=== PATIENT | female | born 1975 | race Caucasian/White ===

== ENCOUNTER → 2018-07-13 | Outpatient (CLI) | payer BC ==
--- NOTE | 2018-07-13 16:23 | US ---
EXAM DESCRIPTION: Soft Tissue,Extremity: ULTRASOUND. CLINICAL HISTORY: 43 years Female PAIN IN RIGHT ARM. Upper lateral and posterior aspect of the right arm. COMPARISON: Comparison ultrasound images of the left arm TECHNIQUE: Transcutaneous scanning: Amaral-scale and Doppler modes. FINDINGS: Scanning of the upper lateral posterior aspect of the right arm were masses palpable. The subcutaneous tissues are homogeneous. There are echogenic fascial planes indicating circumscribed regions of fat which could represent small lipomas. There is also increased echogenicity in the muscle layer posterior to the subcutaneous fascia boundary. No dominant solid mass or distinct cyst. No abnormal calcifications or parenchymal edema. No abnormal vascularity. No overlying skin changes. IMPRESSION: No focally abnormal soft tissue mass in the region of interest. There may be small lipoma or lipomas, which were not not measured. Minimal muscle atrophy indicated by increased fatty content. CRITICAL COMMUNICATION: The critical value was discussed directly by phone by the external grinder tool Ms. Gretta Carrillo RDMS, with Dr. Jerrod Wyatt at approximately 1610 hours, on July 13, 2018. Electronically signed by: Alton Lauren MD 07/13/2018 4:22 PM [facility]
== END ==
LOC: US 15:30
PROVIDERS: ATTEND Family Medicine
DX: M79.601 Pain in right arm (principal)

== ENCOUNTER → 2018-07-20 | Outpatient (CLI) | payer BC ==
--- NOTE | 2018-07-20 09:28 | MRI ---
EXAM DESCRIPTION: MRI right upper arm without and with contrast CLINICAL HISTORY: Pain and swelling upper lateral humerus COMPARISON: None. TECHNIQUE: Multiplanar, multisequence MR images of the right upper arm, pre and post intravenous gadolinium FINDINGS: Not a detailed evaluation of the shoulder joint or the elbow. No advanced glenohumeral arthrosis or focal osteochondral lesion. Rotator cuff tendinosis supraspinatus. Biceps tendon is intact No signal abnormality or mass lesion in the soft tissues of the upper arm. Normal appearance of the muscles Normal marrow signal No abnormality along the neurovascular structures Elbow joint effusion with high-grade chondral thinning diffusely. No focal osteochondral lesion IMPRESSION: No mass lesion or other focal abnormality of the soft tissues of the right upper arm Electronically signed by: Trevor Land MD 07/20/2018 9:27 AM [facility]
== END ==
LOC: MRI 07:45
PROVIDERS: ATTEND Family Medicine
DX: R22.31 Localized swelling, mass and lump, right upper limb (principal)

== ENCOUNTER 2018-11-18 05:21 | Day surgery (SDC) | payer BC ==
[2018-11-18] MEDS ORDERED: PROPOFOL 200 MG/20 ML VIAL IV ONE (07:00)
[2018-11-18] MEDS ORDERED: LIDOCAINE 1% 10 ML VIAL INJ ONE (07:00)
[2018-11-18] MEDS ORDERED: LACTATED RINGERS 1,000 ML ONE (07:05)
[2018-11-18] MEDS ORDERED: LACTATED RINGERS 1,000 ML IVS ONE (08:10)
--- NOTE | 2018-11-18 10:16 | OP ---
DATE OF PROCEDURE: 11/18/18 PREPROCEDURE DIAGNOSIS: 1. Change in bowel pattern. 2. Rectal bleeding. POSTPROCEDURE DIAGNOSIS: 1. Tortuous colon. 2. Internal hemorrhoids. PROCEDURE: 1. Colonoscopy. SURGEON: Clay Rand MD COMPLICATIONS: No immediate complications. SEDATION: Anesthesia was provided by the Anesthesia Department. CONSENT: Prior to the procedure, risks, benefits and alternatives to the therapy were discussed with the patient. The risks included bleeding, infection, perforation and . The patient agreed to the procedure and signed a consent. PREPROCEDURE ANESTHESIA ASSESSMENT: Mallampati class type 2, ASA grade assessment type 2. Throughout the procedure, the patient's vital signs were closely monitored. PROCEDURE: The patient was placed in the left lateral decubitus position and a rectal examination was performed. The rectal examination was within normal limits. The Olympus colonoscope was passed in the anus, rectum, traversing the colon to the level of the cecum as identified by the appendiceal orifice. The scope was retracted and the mucosa was visualized. The entirety of the exam was performed under direct visualization. Retroflexion was performed in the rectum. Preparation quality was good. The withdrawal time was greater than 6 minutes. The patient tolerated the procedure well. FINDINGS: 1. Tortuous colon. 2. Medium to large sized internal hemorrhoids, non-bleeding, were found in retroflexion. 3. Otherwise, the examination of the colon was unremarkable. RECOMMENDATION: 1. Return the patient home. 2. Resume previous diet favoring high-fiber foods. 3. Continue lubiprostone at 8 mcg p.o. b.i.d. 4. May add Citrucel to dietary regimen. 5. If persistent and recurrent bleeding, may consider hemorrhoidal banding p.r.n. 6. Return to referring physicians office as previously scheduled. 7. Return to my office in the next 3 to 4 weeks. #[id number] MTDD
[2018-11-18 10:44] VITALS: BP 102/42; TEMP 98.2; O2SAT 100
== END 2018-11-18 10:30 | disposition home or self-care (01) ==
LOC: AMB 05:21
PROVIDERS: ATTEND Internal Medicine Gastroenterology
DX: K62.5 Hemorrhage of anus and rectum (principal); R19.4 Change in bowel habit; K64.8 Other hemorrhoids; Q43.8 Other specified congenital malformations of intestine; Z79.899 Other long term (current) drug therapy
CPT/HCPCS: 00811; 45378; 81025; J3490; J7120